=== PATIENT | male | born 1990 | race African-American/Black ===

== ENCOUNTER 2019-06-16 06:25 | Emergency (ER) | payer OTHER ==
[~2019-06-16] VITALS: Ht 175.3 cm; Wt 70.3 kg
[~2019-06-16 06:25] MED LIST: AMOXICILLIN 50500 M1 PO; AMOXICILLIN500 M1 PO; APAP/CODEINE ELI5 M1 PO; NAPROSYN500 MG PO; NOHOMEMEDICATIONS; NORCO 5-325 TA1 EACH PO; PENICILLIN VK250 MG PO; ULTRAM 50MG TAB50 MG PO
[2019-06-16 07:07] VITALS: BP 121/70
== END 2019-06-16 07:19 | disposition home or self-care (01) ==
LOC: ER 06:25
DX: H00.11 Chalazion right upper eyelid (principal)